=== PATIENT | male | born 1960 | race Caucasian/White ===

== ENCOUNTER → 2017-08-03 | Outpatient (CLI) | payer OTHER, SELFPAY ==
[~2017-08-03] MED LIST: ASPI81CH PO
[2017-08-03 17:07] LABS: Source, Urine Clean Catch
[2017-08-03 17:31] LABS: Appearance, Urine Hazy (Clear); Color, Urine Yellow (P-Yellow); Leukocyte Esterase, Urine Neg (Neg); Nitrite, Urine Neg (Neg); Protein, Urine Trace (Neg); Specific Gravity, Urine 1.025 (1.003-1.022)
[2017-08-03 17:32] LABS: Bacteria Not Seen /hpf; Bilirubin, Urine Neg (Neg); Blood, Urine 1+ (Neg); Glucose Qualitative, Urine Neg (Normal); Ketones, Urine 1+ (Neg); Mucus Light (0-Heavy); Squamous Epithelial Cells Few /hpf (Few); Urobilinogen, Urine NORM (Normal); White Blood Cells, Urine 0-2 /hpf (0-5)
== END ==
LOC: LAB SHORT 17:06
PROVIDERS: Physician Assistant
DX: R30.0 Dysuria (principal)
CPT/HCPCS: 81001; 87086

== ENCOUNTER → 2017-09-01 | Outpatient (CLI) | payer OTHER, SELFPAY | LOC: LAB EV 16:15 | DX: N39.0 Urinary tract infection, site not specified (principal) | CPT/HCPCS: 87086 ==

== ENCOUNTER 2023-01-18 13:49 | Observation (INO) | payer OTHER ==
[~2023-01-18] VITALS: Ht 182.9 cm; Wt 74.5 kg
[2023-01-18 14:51] LABS: BASOPHILS ABSOLUTE AUTO 0.04 K/mm3 (0.00-0.23); BASOPHILS PERCENT AUTO 0 % (0-2); EOSINOPHILS ABSOLUTE AUTO 0.12 K/mm3 (0.00-0.68); EOSINOPHILS PERCENT AUTO 1 % (0-6); Hematocrit 45.1 % (37.0-53.0); Hemoglobin 15.6 g/dL (13.5-17.5); IMMATURE GRAN ABSOLUTE AUTO 0.01 K/mm3 (0.00-0.10); IMMATURE GRAN PERCENT AUTO 0 % (0-1); LYMPHOCYTES ABSOLUTE AUTO 2.34 K/mm3 (0.84-5.20); LYMPHOCYTES PERCENT AUTO 26 % (21-46); MONOCYTES ABSOLUTE AUTO 0.83 K/mm3 (0.16-1.47); MONOCYTES PERCENT AUTO 9 % (4-13); Mean Corpuscular HGB 32.1 pg (26.0-34.0); Mean Corpuscular HGB Conc 34.6 g/dL (31.5-36.5); Mean Corpuscular Volume 93 fL (80-100); Mean Platelet Volume 11.5 fL (9.1-12.4); NEUTROPHILS ABSOLUTE AUTO 5.63 K/mm3 (1.96-9.15); NEUTROPHILS PERCENT AUTO 63 % (41-73); Platelet Count 167 K/mm3 (150-400); RDW Coefficient Variation 12.5 % (11.7-14.2); Red Blood Cell Count 4.86 M/mm3 (4.30-5.90); White Blood Cell Count 8.97 K/mm3 (4.00-11.30)
[2023-01-18 15:33] LABS: Alanine Aminotransfer (ALT/SGP 31 U/L (12-78); Albumin, Blood 3.8 g/dL (3.4-5.0); Albumin/Globulin Ratio 1.1 (0.8-1.8); Alk Phos 79 U/L (50-136); Anion Gap 4 mmol/L (6-16); Aspartate Aminotrans (AST/SGOT 22 U/L (12-37); Bilirubin, Total 0.3 mg/dL (0.1-1.0); Blood Urea Nitrogen 22 mg/dL (8-24); Bun/Creatinine Ratio 26.1 (12.0-20.0); CO2, Blood 25 mmol/L (21-32); Calcium, Blood 8.8 mg/dL (8.5-10.1); Chloride, Blood 111 mmol/L (98-108); Creatinine, Blood 0.84 mg/dL (0.60-1.20); Ethanol (Alcohol), Blood, Med <3 mg/dL; Globulin, Blood 3.5 g/dL (2.2-4.0); Glomerular Filtration Rate 97 (60-); Glucose, Blood 162 mg/dL (70-99); Sodium, Blood 140 mmol/L (136-145); Total Protein, Blood 7.3 g/dL (6.4-8.2)
[2023-01-18 18:31] VITALS: BP 210/103
[2023-01-18 19:41] VITALS: BP 218/108
--- NOTE | 2023-01-18 19:45 | NUR ---
PATIENT ARRIVED ON UNIT TO 305 AT 1830 WITH HIGH ANXIETY, BP 200S/100S 1-3 WORD COMMUNICATION, CALL TO DR LIN, ORDERS TO GIVE ATARAX AND HYDRALAZINE. MEDS LISTED NEVER GIVEN ARE ATIVAN IV, ASPIRIN AND PLAVIX. CALL TO PHARMACY THEY WILL PREP MEDS DUE TO TIME OUT IN [place], WARREN VALADEZ NOTIFIED AND HE STATES HE WILL I&C TECH MEDS FROM PHARMACY.
[2023-01-18 20:42] VITALS: BP 178/87
[2023-01-19 04:54] LABS: BASOPHILS ABSOLUTE AUTO 0.05 K/mm3 (0.00-0.23); BASOPHILS PERCENT AUTO 1 % (0-2); EOSINOPHILS ABSOLUTE AUTO 0.15 K/mm3 (0.00-0.68); EOSINOPHILS PERCENT AUTO 2 % (0-6); Hemoglobin 16.4 g/dL (13.5-17.5); IMMATURE GRAN ABSOLUTE AUTO 0.02 K/mm3 (0.00-0.10); IMMATURE GRAN PERCENT AUTO 0 % (0-1); LYMPHOCYTES PERCENT AUTO 29 % (21-46); MONOCYTES ABSOLUTE AUTO 0.94 K/mm3 (0.16-1.47); MONOCYTES PERCENT AUTO 11 % (4-13); Mean Corpuscular HGB 31.8 pg (26.0-34.0); Mean Corpuscular HGB Conc 34.9 g/dL (31.5-36.5); Mean Corpuscular Volume 91 fL (80-100); Mean Platelet Volume 11.4 fL (9.1-12.4); NEUTROPHILS ABSOLUTE AUTO 4.87 K/mm3 (1.96-9.15); NEUTROPHILS PERCENT AUTO 57 % (41-73); Platelet Count 152 K/mm3 (150-400); RDW Coefficient Variation 12.6 % (11.7-14.2); Red Blood Cell Count 5.16 M/mm3 (4.30-5.90); White Blood Cell Count 8.53 K/mm3 (4.00-11.30)
[2023-01-19 05:16] VITALS: BP 190/85
[2023-01-19 05:17] VITALS: BP 178/94
[2023-01-19 05:20] LABS: Alanine Aminotransfer (ALT/SGP 33 U/L (12-78); Albumin, Blood 3.6 g/dL (3.4-5.0); Albumin/Globulin Ratio 1.1 (0.8-1.8); Alk Phos 81 U/L (50-136); Anion Gap 6 mmol/L (6-16); Aspartate Aminotrans (AST/SGOT 18 U/L (12-37); Bilirubin, Total 0.5 mg/dL (0.1-1.0); Blood Urea Nitrogen 19 mg/dL (8-24); Bun/Creatinine Ratio 26.1 (12.0-20.0); CHOL/HDL RATIO 5.5; CO2, Blood 22 mmol/L (21-32); Calcium, Blood 8.8 mg/dL (8.5-10.1); Chloride, Blood 113 mmol/L (98-108); Cholesterol 144 mg/dL (50-200); Creatinine, Blood 0.73 mg/dL (0.60-1.20); Globulin, Blood 3.4 g/dL (2.2-4.0); Glomerular Filtration Rate 101 (60-); Glucose, Blood 108 mg/dL (70-99); HDL Cholesterol 26 mg/dL (>39); LDL/HDL RATIO 3.7; Low Density Lipoprotein Chol 95 mg/dL (0-110); Sodium, Blood 141 mmol/L (136-145); Triglycerides 115 mg/dL (30-160); Very Low Density Lipoprot Chol 23 mg/dL (6-32)
--- NOTE | 2023-01-19 06:25 | NUR ---
PT HAD SEVERE ANXIETY ON ADMISSION LAST NIGHT, PACES AND CLICKS TEETH. ATIVAN AND ATARAX GIVEN EARLY IN SHIFT, EFFECTIVE FOR ANXIETY AND ALSO DECREASED HYPERTENSION. PT IS PLEASANT AND MAKES NEEDS KNOWN. REFUSED FULL SKIN CHECK, PT ASKED WHY SKIN CHECK IS NECESSARY, AFTER THE DISCUSSION HE STATED "OH, I DON'T NEED THAT." DENIES SKIN ISSUES EXCEPT FOR ONE SPOT ON BACK OF HEAD WHERE HE SCRATCHES WHEN ANXIOUS. NO S/S OF STROKE DURING SHIFT. FIRE SAFETY REVIEWED. ABLE TO MAKE NEEDS KNOWN.
[2023-01-19 07:42] VITALS: BP 141/103
[2023-01-19 08:30] VITALS: BP 141/103
--- NOTE | 2023-01-19 13:12 | NUR ---
PATIENT LEFT AMA, HAS PETS AND OTHER ANIMALS AT HOME THAT NEED TO BE CARED FOR AND HE LIVES ALONE, NO ONE TO HELP WITH THIS. HE VERBALIZED UNDERSTANDING OF RISKS OF LEAVING AMA, SIGNED AMA FORM. TELEMETRY AND IV SALINE LOCK REMOVED. AMBULATED OFF UNT AT 1232. ENCOURAGED PT TO STILL FOLLOW UP WITH HIS PCP AN OUTPT, TO GET ORDER FOR MRI OUTPT. DR. NATARAJAN NOTIFIED BY PHONE AT 1239.
== END 2023-01-19 12:38 | disposition left against medical advice (07) ==
LOC: ER 13:49 → MEDS 13:50
PROVIDERS: Physician Assistant; ADMIT Internal Medicine
DX: G45.9 Transient cerebral ischemic attack, unspecified (principal); I10 Essential (primary) hypertension; I25.10 Atherosclerotic heart disease of native coronary artery without angina pectoris; I73.9 Peripheral vascular disease, unspecified; I70.0 Atherosclerosis of aorta; I70.1 Atherosclerosis of renal artery; F41.9 Anxiety disorder, unspecified; E11.42 Type 2 diabetes mellitus with diabetic polyneuropathy; E78.5 Hyperlipidemia, unspecified; F17.210 Nicotine dependence, cigarettes, uncomplicated; Z95.5 Presence of coronary angioplasty implant and graft; Z88.0 Allergy status to penicillin; Z79.82 Long term (current) use of aspirin
CPT/HCPCS: 36415; 70450; 80053; 80061; 83036; 85025; 92610; 93005; 93010; 93306; 93880; 96374; 96375; 97116; 97161; 99285-25; A9270; G0378; G0480; J0360; J2060

== ENCOUNTER → 2023-05-25 | Outpatient (CLI) | payer OTHER ==
[2023-05-26 09:26] LABS: Stool Occult Bld Immuno 1 Negative (NEGATIVE)
== END ==
LOC: LAB SHORT 14:36 → LAB 14:36
PROVIDERS: Physician Assistant
DX: Z12.11 Encounter for screening for malignant neoplasm of colon (principal)
CPT/HCPCS: G0328

== ENCOUNTER 2024-04-10 17:40 | Observation (INO) | payer OTHER ==
[~2024-04-10] VITALS: Ht 182.9 cm; Wt 65.4 kg
[~2024-04-10 17:40] MED LIST changes: +ALPR.5; +LISI20
[2024-04-10] MEDS ORDERED: Aspirin 325 MG Tab PO ONE (20:00)
[2024-04-10] MEDS ORDERED: LORazepam 1 MG Tab PO ONE (20:00)
[2024-04-10 20:13] LABS: BASOPHILS ABSOLUTE AUTO 0.05 K/mm3 (0.00-0.23); BASOPHILS PERCENT AUTO 1 % (0-2); EOSINOPHILS ABSOLUTE AUTO 0.13 K/mm3 (0.00-0.68); EOSINOPHILS PERCENT AUTO 1 % (0-6); Hematocrit 44.5 % (37.0-53.0); Hemoglobin 15.3 g/dL (13.5-17.5); IMMATURE GRAN ABSOLUTE AUTO 0.03 K/mm3 (0.00-0.10); IMMATURE GRAN PERCENT AUTO 0 % (0-1); LYMPHOCYTES ABSOLUTE AUTO 2.18 K/mm3 (0.84-5.20); LYMPHOCYTES PERCENT AUTO 22 % (21-46); MONOCYTES ABSOLUTE AUTO 0.98 K/mm3 (0.16-1.47); MONOCYTES PERCENT AUTO 10 % (4-13); Mean Corpuscular HGB 31.4 pg (26.0-34.0); Mean Corpuscular HGB Conc 34.4 g/dL (31.5-36.5); Mean Corpuscular Volume 91 fL (80-100); Mean Platelet Volume 11.5 fL (9.1-12.4); NEUTROPHILS ABSOLUTE AUTO 6.55 K/mm3 (1.96-9.15); NEUTROPHILS PERCENT AUTO 66 % (41-73); Platelet Count 182 K/mm3 (150-400); RDW Coefficient Variation 12.9 % (11.7-14.2); RDW Standard Deviation 43.8 fL (35.1-46.3); Red Blood Cell Count 4.87 M/mm3 (4.30-5.90); White Blood Cell Count 9.92 K/mm3 (4.00-11.30)
[2024-04-10 20:23] LABS: Albumin, Blood 3.9 g/dL (3.4-5.0); Bilirubin, Total 0.4 mg/dL (0.1-1.0); Bun/Creatinine Ratio 29.3 (12.0-20.0); Calcium, Blood 9.8 mg/dL (8.5-10.1); Creatinine, Blood 0.75 mg/dL (0.60-1.20); Globulin, Blood 3.8 g/dL (2.2-4.0); Potassium, Blood 4.4 mmol/L (3.5-5.5); Total Protein, Blood 7.7 g/dL (6.4-8.2)
[2024-04-10] MEDS ORDERED: LORazepam 1 MG Tab PO PRN (21:45)
[2024-04-10] MEDS ORDERED: FLU VACC TS2024-25(6MOS UP)/PF 45 MCG/0.5 ML SYRINGE IM SCH (21:50)
[2024-04-10] MEDS ORDERED: Albuterol 2.5 MG/3 ML VIAL INH PRN (21:50)
[2024-04-10] MEDS ORDERED: Ondansetron HCl 2 MG / ML 2ML Vial IV PRN (21:50)
[2024-04-10] MEDS ORDERED: Labetalol HCL 5 MG/ML 4ML Injection (Single Dose) IV PRN (21:55)
[2024-04-10] MEDS ORDERED: Ipratropium/Albuterol SulF 2.5-0.5MG/3 ML Amp INH SCH (22:00)
[2024-04-10 22:20] LABS: Magnesium, Blood 1.9 mg/dL (1.6-2.4); Thyroid Stimulating Hormone 2.11 uIU/mL (0.360-4.800)
[2024-04-11] MEDS ORDERED: Insulin Human Lispro 100 Units/ML 3ML Syringe SC SCH
[2024-04-11] MEDS ORDERED: Crestor40 MG PO (01:12)
[2024-04-11] MEDS ORDERED: Amlodipine Bes2.5 MG PO (01:12)
[2024-04-11] MEDS ORDERED: CLOP75 PO (01:12)
[2024-04-11 01:22] VITALS: BP 151/62
[2024-04-11 04:22] VITALS: BP 131/71
[2024-04-11 04:27] LABS: Hematocrit 40.9 % (37.0-53.0); Hemoglobin 13.9 g/dL (13.5-17.5); Mean Corpuscular HGB 30.8 pg (26.0-34.0); Mean Corpuscular Volume 91 fL (80-100); Mean Platelet Volume 11.6 fL (9.1-12.4); Platelet Count 165 K/mm3 (150-400); RDW Coefficient Variation 12.7 % (11.7-14.2); RDW Standard Deviation 42.5 fL (35.1-46.3); Red Blood Cell Count 4.51 M/mm3 (4.30-5.90); White Blood Cell Count 7.56 K/mm3 (4.00-11.30)
[2024-04-11 04:52] LABS: Anion Gap 9 mmol/L (3-11); Blood Urea Nitrogen 20 mg/dL (8-24); Bun/Creatinine Ratio 27.7 (12.0-20.0); CHOL/HDL RATIO 4.5; CO2, Blood 25 mmol/L (21-32); Calcium, Blood 8.8 mg/dL (8.5-10.1); Chloride, Blood 112 mmol/L (98-108); Cholesterol 140 mg/dL (50-200); Creatinine, Blood 0.72 mg/dL (0.60-1.20); Glomerular Filtration Rate 101 (60-); Glucose, Blood 138 mg/dL (70-99); HDL Cholesterol 31 mg/dL (>39); LDL/HDL RATIO 2.8; Low Density Lipoprotein Chol 88 mg/dL (0-110); Potassium, Blood 3.6 mmol/L (3.5-5.5); Sodium, Blood 142 mmol/L (136-145); Triglycerides 105 mg/dL (30-160); Very Low Density Lipoprot Chol 21 mg/dL (6-32)
--- NOTE | 2024-04-11 05:10 | NUR ---
SHIFT SUMMARY ASSUMED CARE OF PT AT APPROX 0100 FROM THE ED. PT A&O4 COOPERATIVE IN CARE AND ABLE TO EXPRESS SELF CLEARLY. PT UNABLE TO REMEMBER ALL MEDICAL DX AND PAST SURGICAL HX. PT APPEARS ANXIOUS BUT DENIES CP AND SOB. PRN MEDS GIVEN. VSS, BED IN LOWEST POSITION AND CALL LIGHT WITHIN REACH.
[2024-04-11 07:44] VITALS: BP 152/61
[2024-04-11] MEDS ORDERED: Aspirin 81 MG Chew PO SCH ×2 (09:00)
[2024-04-11] MEDS ORDERED: AmLODIPine Besylate 5 MG Tab PO SCH (09:00)
[2024-04-11] MEDS ORDERED: Atorvastatin 40 MG Tab PO SCH (09:00)
[2024-04-11] MEDS ORDERED: Enoxaparin 40 MG/0.4 ML SYR SC SCH (09:00)
[2024-04-11 09:25] LABS: CHOL/HDL RATIO 4.7; Cholesterol 150 mg/dL (50-200); HDL Cholesterol 32 mg/dL (>39); LDL/HDL RATIO 3.1; Low Density Lipoprotein Chol 98 mg/dL (0-110); Triglycerides 99 mg/dL (30-160); Very Low Density Lipoprot Chol 19 mg/dL (6-32)
--- NOTE | 2024-04-11 11:54 | NUR ---
ASSUMPTION OF CARE PT ALERT, ORIENTED TO SELF, PLACE, YEAR. HE IS ANXIOUS, POOR HISTORIAN, ASKS QUESTIONS RELATING TO CARE. SKIN INTACT, NO BREAKDOWN NOTED, LEFT PIV IN PLACE. HR IN IN THE 70'S, SINUS WITH FREQUENT PVC'S, HE REPORTS INTERMITTENT CHEST PAIN/PRESSURE, DENIES NUMB/TINGLING. L/S CLEAR T/O, O2 >92% ON RA, +BS, DENIES PAIN. SBA ASISST FOR WEAKNESS/UNSTEADY ON FEET. PROVIDER TO BEDSIDE TO DISCUSS PLAN OF CARE. CARDIOLOGY CONSULTED.CARDIOLGY DISCUSSED ANGIOGRAM AND STRESS TEST WITH THE PT. PT AGREED TO DO STRESS TEST. ECHOCARDIOGRAM COMPLETED THIS AM. WILL MONITOR PT. PT TO COMPLETE STRESS TEST AT THIS TIME.
[2024-04-11 12:11] VITALS: BP 135/97
[2024-04-11] MEDS ORDERED: Regadenoson 0.4 MG/5 ML SYRINGE ONE (13:28)
[2024-04-11] MEDS ORDERED: Caffeine Citrated 60 MG/3 ML Vial ONE (13:28)
[2024-04-11] MEDS ORDERED: Acetaminophen 325 MG TABLET PO PRN (13:30)
[2024-04-11 16:50] VITALS: BP 147/81
--- NOTE | 2024-04-11 18:21 | NUR ---
SHIFT SUMMARY PT ALERT AND ORIENTED. STRESS TEST COMPLETED THIS AFTERNOON WELL ECHO. PT EXTREMELY ANXIOUS AWAITING TO HEAR FROM CARDIOLOGY, MEDICATED PER EMAR. HT IN THE 70'S, SR, OCASSIONAL RUNS OF NONSUSTAINED VTACH, PT ASYMPTOMATIC, DENIES CP/PRESSURE, NUMB/TINGLING, O2 >92% ON RA. WILL MONITOR PT AND REORT TO GEOTHERMAL SYSTEM INSTALLER RN.
[2024-04-11 20:51] VITALS: BP 154/92
--- NOTE | 2024-04-11 23:25 | NUR ---
ASSUMPTION OF CARE NOTE. PT AOX3, PLEASANT, COOPERATIVE, ABLE TO MAKE NEEDS KNOWN. VERY ANXIOUS AT TIMES. ON SHIFT ASSESSMENT WAS REQUESTING PO ATIVAN TO HELP RELAX BUT WAS RECEPTIVE TO WAITING UNTIL NEXT TIME OF IT BEING DUE. VITALS HAVE BEEN STABLE. Q6 CBG. BED ALARM ACTIVE, PT IMPULSIVE AT TIMES. ABLE TO TRANSFER WITH MINIMAL ASSISTANCE BUT HAS SOMEWHAT UNSTEADY GAIT AT TIMES. PT IS VERY ANXIOUS AT TIMES AND REPORTS THAT HE WILL STAY THROUGH THE NIGHT BUT IS STRONGLY CONSIDERING LEAVING TOMORROW. EDUCATED ON INDICATION FOR STAY AND PRESENT CONDITION. PT RECEPTIVE. BED LOCKED IN LOWEST POSITION. CALL LIGHT LEFT WITHIN REACH. BED ALARM ACTIVE. CONTINUING TO MONITOR.
[2024-04-12] VITALS (10 sets, daily range): BP systolic 130–176; BP diastolic 76–145
--- NOTE | 2024-04-12 00:22 | NUR ---
PT SLEEPING IN BED AT TIME OF THIS RN ENTERING ROOM TO TAKE VITALS. PT EASILY AWOKEN BUT WAS CLEARLY UNHAPPY ABOUT BEING WOKEN UP. VITALS STABLE OUTSIDE OF ELEVATED BP. SBP UNDER CUTOFF FOR PRN LABETALOL MANAGEMENT. WILL CONTINUE TO MONITOR BLOOD PRESSURE AND TREAT NEEDED. OTHERWISE PT IS DOING WELL. BLOOD SUGAR STABLE, COVERAGE NOT INDICATED FOR 0000 HUMALOG. BED LOCKED IN LOWEST POSITION. CALL LIGHT LEFT WITHIN REACH. BED ALARM REMAINS ACTIVE. CONTINUING TO MONITOR.
--- NOTE | 2024-04-12 04:01 | NUR ---
SHIFT SUMMARY. PT HAS OVERALL DONE WELL THROUGHOUT SHIFT. REMAINS AOX3, ABLE TO MAKE NEEDS KNOWN. IS AT TIMES VERY IRRITABLE AND NOT COOPERATIVE WITH STAFF. AT TIMES DOES NOT ALLOW FOR STAFF TO FIX TELEMETRY STICKERS FOR EXAMPLE. REMAINS IMPULSIVE OOB AT TIMES AND DOES NOT USE CALL LIGHT. PT STATED THAT HE KNOWS WHEN HE GETS OOB STAFF IS ALERTED AND ENTERS ROOM AND THUS HAS DECIDED TO USE THIS METHOD TO GET HELP WHEN HE NEEDS IT, DESPITE EDUCATION FITNESS CLUB MANAGER LIGHT AND INDICATION FOR BED ALARM. OTHERWISE PT HAS REMAINED STABLE THROUGHOUT SHIFT. CONTINUES TO RUN SINUS W/PVCs ON TELE. VITALS REMAIN STABLE. CONTINUES TO REPORT ANXIETY AT TIMES AND REQUESTS PO ATIVAN. HAS BEEN NPO SINCE MIDNIGHT. BED LOCKED IN LOWEST POSITION. CALL LIGHT LEFT WITHIN REACH. CONTINUING TO MONITOR.
[2024-04-12 04:39] LABS: BASOPHILS ABSOLUTE AUTO 0.06 K/mm3 (0.00-0.23); BASOPHILS PERCENT AUTO 1 % (0-2); EOSINOPHILS ABSOLUTE AUTO 0.11 K/mm3 (0.00-0.68); EOSINOPHILS PERCENT AUTO 1 % (0-6); Hematocrit 42.5 % (37.0-53.0); Hemoglobin 14.5 g/dL (13.5-17.5); IMMATURE GRAN ABSOLUTE AUTO 0.02 K/mm3 (0.00-0.10); IMMATURE GRAN PERCENT AUTO 0 % (0-1); LYMPHOCYTES ABSOLUTE AUTO 1.95 K/mm3 (0.84-5.20); LYMPHOCYTES PERCENT AUTO 24 % (21-46); MONOCYTES ABSOLUTE AUTO 0.87 K/mm3 (0.16-1.47); MONOCYTES PERCENT AUTO 11 % (4-13); Mean Corpuscular HGB 31.2 pg (26.0-34.0); Mean Corpuscular HGB Conc 34.1 g/dL (31.5-36.5); Mean Corpuscular Volume 91 fL (80-100); Mean Platelet Volume 11.8 fL (9.1-12.4); NEUTROPHILS ABSOLUTE AUTO 5.05 K/mm3 (1.96-9.15); NEUTROPHILS PERCENT AUTO 63 % (41-73); Platelet Count 173 K/mm3 (150-400); RDW Coefficient Variation 12.7 % (11.7-14.2); RDW Standard Deviation 41.8 fL (35.1-46.3); Red Blood Cell Count 4.65 M/mm3 (4.30-5.90); White Blood Cell Count 8.06 K/mm3 (4.00-11.30)
[2024-04-12 05:05] LABS: Bun/Creatinine Ratio 32.9 (12.0-20.0); Calcium, Blood 9.1 mg/dL (8.5-10.1); Creatinine, Blood 0.7 mg/dL (0.60-1.20); Potassium, Blood 3.6 mmol/L (3.5-5.5)
[2024-04-12 08:43] LABS: International Normalized Ratio 1.07; Prothrombin Time Results 11.4 Sec (9.7-11.5)
[2024-04-12] MEDS ORDERED: NS 1,000 ML IV ONE (09:00)
[2024-04-12] MEDS ORDERED: Verapamil HCL 2.5 MG/ML 2ML Injection ONE (09:00)
[2024-04-12] MEDS ORDERED: NS 250 ML IV ONE (09:00)
[2024-04-12] MEDS ORDERED: Heparin Sodium 1000 Units/ML 10ML MDV ONE (09:00)
[2024-04-12] MEDS ORDERED: Nitroglycerin 2 MG/20 ML BTL ONE (09:01)
[2024-04-12] MEDS ORDERED: NS 500 ML IV ONE (09:13)
[2024-04-12] MEDS ORDERED: Midazolam HCl 1MG / ML 2ML Vial ONE (09:40)
[2024-04-12] MEDS ORDERED: FentaNYL Citrate 50 MCG/ML 2 ML Injection ONE (09:40)
--- NOTE | 2024-04-12 11:19 | NUR ---
PT BACK FROM [employer] AT 1025. RIGHT RADIAL SITE WITH TR BAND IN PLACE, NO HEMATOMA, BLEEDING OR TENDERNESS NOTED. PT ISTRUCTED TO NOT BEND WRIST OR LIFT WITH THAT ARM, PT VERBALIZED UNDERSTANDING. PT RIGHT ELBOW SITE WITH SMALL DROP OF BLOOD IN BANDAGE, [employer] RN REPORTED THAT SITE HAS NOT BLED MORE THAN WHAT IS PRESENT ON BANDAGE. PT SEEN BY [employer]ENO WRITER AND UPDATED ON OPTIONS. PT AGREEABLE FOLLOWUP WITH CARDIOLGY OUTPATIENT FOR POSSIBLE INTERVENTIONS. PT EXPRESSED TO THIS RN CONCERNS OF [place], THIS RN THERAPEUTICALLY LISTEDNED. PT INFORMED OF WHAT RECOVERY LOOKS LIKE POST PROCEDURE. PT EXPRESSED SOME CONCERNS OF QUALITY OF LIFE COMPARING [place]PASS WITH STENTS. THIS RN INSTRUCTED PT TO ADRESS HIS CONCERNS WITH [employer] WRITER SON THAT CARDIOLOGY WOULD BE AWARE OF PT'S CONCERNS AND WISHES. PT AGREED.
--- NOTE | 2024-04-12 12:13 | NUR ---
NOTIFIED OF PT'S ELEVATED BP'S. TO PLACE NEW ORDER.
--- NOTE | 2024-04-12 12:55 | NUR ---
TR BAND RECOVERY 2ML REMOVED AT 1220, 2ML AT 1230, 2ML AT 1240, AND 3ML AT 1250. NO BLEEDING, HEMATOMA, OR TENDERNESS NOTED.
[2024-04-12] MEDS ORDERED: Carvedilol 3.125 MG Tab PO SCH (13:00)
--- NOTE | 2024-04-12 14:02 | NUR ---
TR BAND RECOVERED AT 1400. CLEAR TEGADERM IN PLACE. NO BLEEDING, HEMATOMA, OR TENDERNESS NOTED AT THIS TIME. PT INSTRUCTED TO KEEP ARM BOARD IN PLACE A REMINDER TO NOT BEND WRIST, PT AGREEABLE. PT EDUCATED ON WATCHING FOR SIGNS OF INFECTION OR BLEEDING, PT VERBALIZED UNDERSTANDING.
[2024-04-12] MEDS ORDERED: CARV3.125 PO (15:25)
--- NOTE | 2024-04-12 16:04 | NUR ---
DISCHARGE UPDATE DISCHARGE PACKET GONE OVER WITH PT AND PT SON AT 1540. PT DISCHARGED AT 1600 VIA WHEELCHAIR AND ON RA. PT ABLE TO DRESS HIMSELF AND TRANSFER TO WHEELCHAIR. PT EDUCATED ON RADIAL SITE CARE AND WHEN TO CONTACT HIS MD, PT VERBALIZED UNDERSTANDING. PT PERSONAL BELONGING IN WITH PT AT TIME OF DISCHARGE. DISCHARGE PACKET WITH SON.
== END 2024-04-12 16:04 | disposition home or self-care (01) ==
LOC: ER 17:40 → ERHOLD 17:41 → PCU 17:41
PROVIDERS: Internal Medicine; Nurse Practitioner Acute Care; Student in an Organized Health Care Education/Training Program; ADMIT Student in an Organized Health Care Education/Training Program
DX: I25.118 Atherosclerotic heart disease of native coronary artery with other forms of angina pectoris (principal); J44.9 Chronic obstructive pulmonary disease, unspecified; K21.9 Gastro-esophageal reflux disease without esophagitis; E78.5 Hyperlipidemia, unspecified; E11.51 Type 2 diabetes mellitus with diabetic peripheral angiopathy without gangrene; F17.210 Nicotine dependence, cigarettes, uncomplicated; I11.0 Hypertensive heart disease with heart failure; I50.20 Unspecified systolic (congestive) heart failure; Z79.82 Long term (current) use of aspirin; Z79.899 Other long term (current) drug therapy; Z88.0 Allergy status to penicillin; Z88.8 Allergy status to other drugs, medicaments and biological substances; Z95.5 Presence of coronary angioplasty implant and graft
CPT/HCPCS: 36415; 71045; 76937; 78452; 80048; 80053; 80061; 82947; 83036; 83735; 83880; 84443; 84484; 85025; 85027; 85610; 85730; 93005; 93010; 93017; 93306; 93460; 94640; 94664; 94760; 99152; 99285-25; A9270; A9500; C1769; C1887; C1894; G0378; J0706; J1644; J2250; J2785; J3010; J7030; J7040; J7050; Q9967